=== PATIENT | male | born 1945 ===

== ENCOUNTER → 2019-09-29 | Outpatient (CLI) | payer MEDICARE, OTHER ==
[~2019-09-29] MED LIST: AMLO2.5T5 PO; ASPI-496 PO; ATOR-2 PO; CARV6.252 PO; CLOP75TA PO; FENO43CA6 PO; GLIP5TAB10 PO; LISI40TA PO; METF100010 PO; NITR0.4T28 SL
== END | disposition home or self-care (01) ==
LOC: CVU 13:11
PROVIDERS: ATTEND Internal Medicine Cardiovascular Disease
DX: I51.7 Cardiomegaly (principal); I25.10 Atherosclerotic heart disease of native coronary artery without angina pectoris; I21.3 ST elevation (STEMI) myocardial infarction of unspecified site
CPT/HCPCS: 93306

== ENCOUNTER 2020-09-06 14:28 | Outpatient (CLI) | payer MEDICARE, OTHER ==
[~2020-09-06 14:28] MED LIST changes: -LISI40TA PO; +LISI40TA9 PO
== END 2020-09-06 23:59 | disposition home or self-care (01) ==
LOC: CVU 14:28
PROVIDERS: ATTEND Internal Medicine Cardiovascular Disease
DX: I08.8 Other rheumatic multiple valve diseases (principal); I25.10 Atherosclerotic heart disease of native coronary artery without angina pectoris
CPT/HCPCS: C8929; Q9957